=== PATIENT | male | born 2000 | race Caucasian/White ===

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

== ENCOUNTER 2022-08-01 16:25 | Outpatient (CLI) | payer BC, SELFPAY ==
--- NOTE | 2022-08-01 11:00 | NEURO_ITS ---
Impression: # Complains of pain in right hand. # No Carpal Tunnel Syndrome. # No ulnar neuropathy. # Normal needle/EMG exam. # Clinical correlation recommended. Nerve Conduction Studies Anti Sensory Summary Table Stim Site NR Peak (ms) P-T Amp (?V) Site1 Site2 Delta-P (ms) Dist (cm) Latrell (m/s) Left Median Anti Sensory (2-3nd Digit) Wrist 3.1 46.6 Wrist 2-3nd Digit 3.1 14.0 45 Wrist 3.2 40.6 Wrist 2-3nd Digit 3.1 14.0 45 Right Median Anti Sensory (2-3nd Digit) Wrist 3.1 40.5 Wrist 2-3nd Digit 3.1 14.0 45 Wrist 3.1 21.6 Wrist 2-3nd Digit 3.1 14.0 45 Left Radial Anti Sensory (Base 1st Digit) Wrist 2.3 13.8 Wrist Base 1st Digit 2.3 0.0 Right Radial Anti Sensory (Base 1st Digit) Wrist 2.7 16.4 Wrist Base 1st Digit 2.7 0.0 Left Ulnar Anti Sensory (5th Digit) Wrist 2.8 16.6 Wrist 5th Digit 2.8 14.0 50 Right Ulnar Anti Sensory (5th Digit) Wrist 2.8 14.5 Wrist 5th Digit 2.8 14.0 50 Motor Summary Table Stim Site NR Onset (ms) O-P Amp (mV) Site1 Site2 Delta-0 (ms) Dist (cm) Latrell (m/s) Left Median Motor (Abd Poll Brev) Wrist 2.9 4.6 Elbow Wrist 5.5 30.0 55 Elbow 8.4 3.9 Right Median Motor (Abd Poll Brev) Wrist 3.1 3.9 Elbow Wrist 5.4 31.0 57 Elbow 8.5 6.6 Left Ulnar Motor (Abd Dig Minimi) Wrist 2.6 6.4 A Elbow Wrist 4.9 29.0 59 A Elbow 7.5 5.6 Right Ulnar Motor (Abd Dig Minimi) Wrist 2.9 5.8 A Elbow Wrist 5.4 31.0 57 A Elbow 8.3 4.5 F Wave Studies NR F-Lat (ms) L-R F-Lat (ms) Left Median (Mrkrs) (Abd Poll Brev) 29.69 0.71 Right Median (Mrkrs) (Abd Poll Brev) 28.98 0.71 Left Ulnar (Mrkrs) (Abd Dig Min) 29.30 0.45 Right Ulnar (Mrkrs) (Abd Dig Min) 29.75 0.45 EMG Side Muscle Nerve Root Ins Act Fibs Amp Dur Recrt Comment Right 1stDorInt Ulnar C8-T1 Nml Nml Nml Nml Nml Right Ext Indicis Radial (Post Int) C7-8 Nml Nml Nml Nml Nml Right Ext Digitorum Radial (Post Int) C7-8 Nml Nml Nml Nml Nml Right BrachioRad Radial C5-6 Nml Nml Nml Nml Nml Right PronatorTeres Median C6-7 Nml Nml Nml Nml Nml Right Abd Poll Brev Median C8-T1 Nml Nml Nml Nml Nml Left 1stDorInt Ulnar C8-T1 Nml Nml Nml Nml Nml Left Ext Indicis Radial (Post Int) C7-8 Nml Nml Nml Nml Nml Left Ext Digitorum Radial (Post Int) C7-8 Nml Nml Nml Nml Nml Left BrachioRad Radial C5-6 Nml Nml Nml Nml Nml Left PronatorTeres Median C6-7 Nml Nml Nml Nml Nml Left Abd Poll Brev Median C8-T1 Nml Nml Nml Nml Nml Right Biceps Musculocut C5-6 Nml Nml Nml Nml Nml Right Triceps Radial C6-7-8 Nml Nml Nml Nml Nml Right Deltoid Axillary C5-6 Nml Nml Nml Nml Nml Left Biceps Musculocut C5-6 Nml Nml Nml Nml Nml Left Triceps Radial C6-7-8 Nml Nml Nml Nml Nml Left Deltoid Axillary C5-6 Nml Nml Nml Nml Nml MTDD
--- NOTE | 2022-08-02 07:11 | PCNEURO ---
Paper documentation exists on this patient due to [employer] downtime on 08/01/22 from to 00:30-19:30 .
== END 2022-08-01 16:26 | disposition home or self-care (01) ==
LOC: ANHNEURO 16:25
PROVIDERS: PCP Physician Assistant; Visit Provider Physician Assistant
DX: M79.641 Pain in right hand (principal)
CPT/HCPCS: 95886; 95911

== ENCOUNTER 2024-02-28 11:04 | Emergency (ER) | payer BC, SELFPAY ==
[2024-02-28 11:34] VITALS: BP 119/84; PULSE 91; RESP 18; TEMP 36.9; O2SAT 97
--- NOTE | 2024-02-28 12:55 | PC.NURSE ---
not in waiting room. Called 3 different times for radiology and no answer in waiting room. Did not let let staff know at desk he was leaving
== END 2024-02-28 13:40 | disposition left against medical advice (07) ==
PROVIDERS: PCP Physician Assistant
DX: S99.922A Unspecified injury of left foot, initial encounter (principal)
CPT/HCPCS: 99199

== ENCOUNTER 2024-05-18 15:02 | Emergency (ER) | payer BC, SELFPAY ==
--- NOTE | 2024-05-18 15:06 | PC.NURSE ---
Pt. states I have to use the bathroom and ran to bathroom. Will get vital signs when pt. returns.
[2024-05-18 15:08] VITALS: BP 150/97; PULSE 63; RESP 19; TEMP 36.4; O2SAT 100
--- NOTE | 2024-05-18 16:37 | PC.NURSE ---
Pt. called to be brought back to a room. Pt. Dad states they are leaving now to go somewhere else. Pt. and visitor understood that were being brought back to a room and declined. Pt. ambulatory with a steady gait at time of d/c.
--- OUTSIDE RECORDS SUMMARY | 2024-05-18 16:37 | XMS_ITS | Data Portability ---
[facility] [address] [place] [address] Care Team Providers Care Control Analyst Name Role Phone OMA RIVERS Primary Care Provider Unavailab le Assessment No assessment recorded. Plan of Treatment Reminders Order Date Submit Date Provider Last Modified By Organization Details Last Modified Time Details Appointments None recorded. Lab TSH + free T4, serum 2023 [email or web address] [facility], [address], [place], [address], 5 10:38:10 CMP, serum or plasma 2023 [email or web address] [facility], [address], [place], [address], 5 10:38:10 [facility] w/ [email or web address], [address], [place], [address], 5 10:38:10 lipid panel, serum 2023 [email or web address] [facility], [address], [place], [address], 5 10:38:10 vitamin B12 + folate, serum or blood 2023 [email or web address] [facility], [address], [place], [address], 5 10:37:39 HbA1c (hemoglobi n A1c), blood 2023 024 [email or web address] [facility], [address], [place], [address], 5 10:38:10 TSH + free T4, serum 2023 024 [email or web address] [facility], [address], [place], [address], 4 17:45:46 lipid panel, serum 2023 024 [email or web address] [facility], [address], [place], [address], 4 17:45:58 CMP, serum or plasma 2023 024 [email or web address] [facility], [address], [place], [address], 4 17:46:07 CBC w/ auto diff 2023 024 [email or web address] [facility], [address], [place], [address], 4 17:46:02 HbA1c (hemoglobi n A1c), blood 2023 024 [email or web address] [facility], [address], [place], [address], 4 17:45:52 Referral plastic surgeon referral 2023 024 [email or web address] Maris Dwyer MD, [address], [place], [address], 5 11:08:22 Procedures None recorded. Surgeries None recorded. Imaging None recorded. Medication Orders trazodone 100 mg tablet 2023 024 [id number], [address], [place], [place], [id number], 4 15:34:15 Medrol (Chele) 4 mg tablets in a dose pack 2023 024 [id number], [address], [place], [place], [id number], 4 15:04:38 Patient TargetsNo targets recorded. Patient InstructionsNo instructions recorded. 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 Referring Physician: Oma Rivers, Internal Medicine, Encounter Date: 07/03/2023 Problems Name Problem SNOMED Code Status Onset Date Resolution Date Notes Provider Name and Address Organization Details Recorded Time Chronic insomnia 547869426 Active 024 KIM York Attn: Justin villanueva,[address] [place], [address], [facility] 4 09:31:31 Benign paroxysmal positional vertigo 088452334 Active 024 KIM York Attn: Justin villanueva,[address] [place], [address], [facility] 4 09:31:32 Fatigue 51807729 Active 024 KIM York Attn: Justin villanueva,[address] [place], [address], [facility] 4 09:31:40 Problem Notes None recorded. Medical Equipment None Reported. Allergies No known drug allergies Medications Name Sig Start Date Stop Date Status Note LastModified by Organization Details LastModified Time azithromy beryl 250 mg tablet TAKE 2 TABLETS (500 MG) BY ORAL ROUTE ONCE DAILY FOR 1 DAY THEN 1 TABLET (250 MG) BY ORAL ROUTE ONCE DAILY FOR 4 DAYS active Not Available Not Available No t Available prednison e 20 mg tablet active Not Available Not Available Not Available trazodone 100 mg tablet Take 1 tablet every day by oral route at bedtime. active Not Available Not Available No t Available meclizine 25 mg tablet Take by oral route for 3 days. active vertigo Not Available Not Available No t Available methylpre dnisolone 4 mg tablets in a dose pack use as directed 12/26 completed Not Available Not Available Not Available amoxicill in 875 mg-potass ium clavulana te 125 mg tablet TAKE 1 TABLET BY MOUTH TWICE DAILY FOR 10 DAYS active Not Available Not Available No t Available Vitals Date Recorded Body height Respiratory rate Body mass index (BMI) Body weight Heart rate Oxygen saturation Oxygen saturation in Arterial blood by Pulse oximetry Systolic blood pressure Diastolic blood pressure Provider Name and Address Organization Details Last Updated DateTime 4 180.34 cm 18 /min 19.8 kg/m2 58058.1 2 g 90 /min 99 % 99 % 120 mm[Hg] 82 mm[Hg] Aj Anderson MA [facility] 4 09:58:14 Date Recorded Body height Body mass index (BMI) Body weight Respiratory rate Oxygen saturation Oxygen saturation in Arterial blood by Pulse oximetry Heart rate Systolic blood pressure Diastolic blood pressure Provider Name and Address Organization Details Last Updated DateTime 4 180.34 cm 19.7 kg/m2 64037.5 2 g 18 /min 98 % 98 % 75 /min 118 mm[Hg] 82 mm[Hg] Aj Anderson MA [facility] 4 15:07:24 Social History Question Answer Notes LastModified by Organizat ion Details LastModified Time Tobacco Smoking Status Never Smoker Aj Anderson MA null, [facility] 07/03/2023 09:55:56 Do You Have An Advance Directive? No Information not available 07/03/2023 What Is Your Level Of Alcohol Consumption? Occasional Twice A Month Information not available 07/03/2023 Are You Blind Or Do You Have Difficulty Seeing? No Information not available 07/03/2023 What Is Your Level Of Caffeine Consumption? Occasional Soda A Day Information not available 07/03/2023 In The 14 Days Before Symptom Onset, Have You Had Close Contact With A [facility] While That Case Was Ill? No Information not available 07/02/2023 In The 14 Days Before Symptom Onset, Have You Had Close Contact With A Person Who Is Under Investigation For COVID-19 While That Person Was Ill? No Information not available 07/02/2023 Have You Been To An Area Known To Be High Risk For COVID-19? No Information not available 07/02/2023 Are You Deaf Or Do You Have Serious Difficulty Hearing? No Information not available 07/03/2023 What Type Of Diet Are You Following? REGULAR Information not available 07/03/2023 Are There Any Guns Present In Your Home? No Information not available 07/03/2023 What Was The Date Of Your Most Recent Tobacco Screening? 12/27/2023 Information not available 12/27/2023 What Is Your Relationship Status? Domestic Partner Information not available 07/03/2023 Do You Use Your Seat Belt Or Car Seat Routinely? Yes Information not available 07/02/2023 Do You Have Smoke And Carbon Monoxide Detectors In Your Home? Yes Information not available 07/02/2023 Do You Use Any Illicit Or Recreational Drugs? No Information not available 07/03/2023 Do You Use Sunscreen Routinely? No Information not available 07/03/2023 Has Tobacco Cessation Counseling Been Provided? Yes Information not available 07/02/2023 On What Date Was Tobacco Cessation Counseling Provided? 07/03/2023 Information not available 07/03/2023 Do You Or Have You Ever Used Any Other Forms Of Tobacco Or Nicotine? No Information not available 07/03/2023 Sex: Male Functional Status Question Answer Note LastModified by Organizat ion Details LastModified Time Are you able to care for yourself? Yes Information not available 07/02/2023 What is your exercise level? Moderate 2x a week Information not available 07/03/2023 Mental Status None recorded. Family History Relationship Description Onset Age of this Age Resolved Age Notes LastModified by Organization Details LastModified Time Father Depressive disorder [email or web address] Not available 2023 12:24:54 Sister Depressive disorder [email or web address] Not available 2023 12:24:54 Mother Disorder of thyroid gland [email or web address] Not available 2023 12:25:35 Medical History Condition Response Coronary Artery Disease N Other N Atrial Fibrillation N High Blood Pressure N Kidney or Bladder Problems N Thyroid Problems N GI Problems N Depression N COPD N Blood Clots N Skin Problems N Anemia N Heart Attack ([place]) N Anxiety Disorder N Diabetes N Muscle, Joint, or Bone Problems N Seizures/Epilepsy N Acid Reflux (GERD) N Cancer N Stroke N Asthma Y Allergies N High Cholesterol N Hepatitis N Liver Disease N Headaches N Heart Failure N Osteoporosis N Immunizations Vaccine Type Date Status Note Provider Nam e and Address Organization Details Recorded Time Hib-Hep B 2 completed Aj [place], [place] [facility] 12/26/2023 14:58:42 Hib-Hep B 2 completed Aj [place] [facility] 12/26/2023 14:58:42 Hib-Hep B 2 completed Aj [place] [facility] 12/26/2023 14:58:42 IPV 2 completed Aj [place] [facility] 12/26/2023 14:58:42 IPV 2 completed Aj [place] [facility] 12/26/2023 14:58:42 IPV 2 completed Aj [place] [facility] 12/26/2023 14:58:43 meningococcal ACWY, unspecified formulation 3 completed Aj [place] [facility] 12/26/2023 14:58:43 MMR 7 completed Aj [place] [facility] 12/26/2023 14:58:43 MMR 2 completed Aj [place] [facility] 12/26/2023 14:58:43 meningococcal MPSV4 9 completed Aj [place] [facility] 12/26/2023 14:58:43 COVID-19, mRNA, LNP-S, PF, 30 mcg/0.3 mL dose 1 completed Aj [place] [facility] 12/26/2023 14:58:43 COVID-19, mRNA, LNP-S, PF, 30 mcg/0.3 mL dose 1 completed Aj [place] [facility] 12/26/2023 14:58:43 pneumococcal conjugate PCV 7 2 completed Aj [place] [facility] 12/26/2023 14:58:43 pneumococcal conjugate PCV 7 2 completed Aj [place] [facility] 12/26/2023 14:58:43 pneumococcal conjugate PCV 7 2 completed Aj [place] [facility] 12/26/2023 14:58:43 pneumococcal conjugate PCV 7 2 completed Aj [place] [facility] 12/26/2023 14:58:43 Tdap 3 completed [place] [facility] 12/26/2023 14:58:43 varicella 7 completed [place] [facility] 12/26/2023 14:58:43 varicella 3 completed [place] [facility] 12/26/2023 14:58:43 polio, unspecified formulation 7 completed [place] [facility] 12/26/2023 14:58:43 DTaP 2 completed [place] [facility] 12/26/2023 14:58:43 DTaP 2 completed [place] [facility] 12/26/2023 14:58:43 DTaP 2 completed [place] [facility] 12/26/2023 14:58:43 DTaP, unspecified formulation 7 completed DOROT[place] [facility] 12/26/2023 14:58:43 DTaP, unspecified formulation 3 [place] [facility] 12/26/2023 14:58:43 Hep A, unspecified formulation 3 [place] [facility] 12/26/2023 14:58:43 Hep A, unspecified formulation 7 completed D[place]OT[place] [facility] 12/26/2023 14:58:43 Past Encounters Encounter ID Performer Location Encounter Start Date Encounter Closed Date Diagnosis/Indication Diagnosis SNOMED-CT Code Diagnosis ICD10 Code Diagnosis Note [id number] KIM York [facility] [address] [place] [address] 07/03/2023 09:48:20 07/03/2023 11:34:56 Paresthesia of bilateral hands 984785852 R20.2 pt continues to report bilateral hand pain. He did complete NCS at [facility] at the last office location. will await those records but he should consult with hand specialist on his symptoms to see if recheck for carpal tunnel is needed. Strain of muscle of right forearm 0500706813 2091714 S56.911A Start medrol dose pack. patient uses his hands and forearms all day at work, using tools and twisting and turning tools. He should ice the area as well. Long-term drug therapy 798459041 Z79.899 cmp and cbc due. Cholesterol screening 27 1887821 Z13.220 fasting lipids due Diabetes m ellitus screening 192688439 Z13.1 a1c screening due. Thyroid di sorder screening 702153107 Z13.29 thyroid panel screening ordered. [id number] KIM York [facility] [address] [employer] [place] [address] 12/27/2023 14:37:07 12/30/2023 16:39:55 Long-term drug therapy 026076743 Z79.899 cmp and cbc due. Cholesterol screening 27 6040215 Z13.220 fasting lipids due Diabetes m ellitus screening 774070408 Z13.1 a1c screening due. Thyroid di jonnie screening 283499071 Z13.29 thyroid panel screening ordered. Fatigue 68676393 R53.83 Screening B12 and folate ordered for persistent fatigue which may be related to his chronic insomnia. Benign par oxysmal positional vertigo 895849808 H81.13 Patient is already having some improvemen t with meclizine. He can continue this plan and notify us if there is not complete resolution of symptoms. Chronic insomnia 6797868 04 F51.04 Patient's insomnia is his major complaint today. We will trial him on trazodone 100 mg p.o. q.h.s. Health Concerns Section Related Observation LastModified by Organization Lyndon newman LastModified Time None Recorded Concern Status LastModified by Organization Details LastModified Time None Recorded Advance Directives Directive N: Payers Encounter Date Sequence Insurance Name Policy Number Policy Daily Covered Member ID Daily Member ID Guarantor Name 07/03/2023 1 [place] [id number] Freddy Edward [id number] Freddy Edward 12/27/2023 1 [place] [id number] Freddy Cheyanne [id number] Freddy Cheyanne Notes Date Note Type Note Provider Name and Address Organization Details Recorded Time 4 text/html Musculoskeletal PainReported bypatient.Notes:Right hand pain at times with grabbing, he gets this pinching nerve pain and cannot close hand or log buyer. take 4-5 min. of rest and pain resolves. Then last night he bent down and reached something off floor and right forearm medially had burning sensation pain, that shot to elbow region. Pain today is less so and just feels tender. 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 KIM York Attn: Accounting,[address] [place], [address], [facility] 07/21/2023 15:08:14 4 text/html FatigueReported bypatient.Quality:continuou s Severity:normal activity; Poor sleep Timing:worse Context:no problems/stress at work or home;symptoms do not improve on weekends/vacations Modifying Factors:no new stressors in life Associated Symptoms:no drug/alcohol withdrawal; no depression; no anxiety; no sleep disturbances; no snoring; periods of not breathing (apnea) have not been observed; no recent change in weightInsomniaReported bypatient.Quality:symptoms worse in the evening Severity:worsening Duration:frequent Context:takes hours to fall asleep Associated Symptoms:no anxiety; no snoring; no depression; no known sleep apnea; no pain; no dyspnea; no urinary frequency; legs do not feel restless Patient had episode of significant dizziness and fatigue and went to the urgent Care was diagnosed with vertigo. They gave him meclizine which is helping some but he was also treated for a sinus infection with Augmentin and prednisone KIM York Attn: Accounting,[address] [place] [address], [address], [place] - [facility] 01/17/2024 09:32:44
--- OUTSIDE RECORDS SUMMARY | 2024-05-18 16:37 | XMS_ITS | Continuity of Care Document ---
Author Organization [facility] Address [address] [place] [address] Phone Care Team Providers Care Mine Foreman Name Role Phone Mike PT,MPT,ATC, Josh Unavailable Unavai labzuleika Procedures Procedure Date Progress Note Therapeutic Exercise Neuromuscular Re-Ed Manual Therapy Therapeutic Exercise Neuromuscular Re-Ed Manual Therapy Hot or Cold Pack Electrical Stimulation Therapeutic Exercise Neuromuscular Re-Ed Manual Therapy Hot or Cold Pack Electrical Stimulation PT Evaluation Moderate Complexity Neuromuscular Re-Ed Manual Therapy Hot or Cold Pack Electrical Stimulation Advance Directives Directive Yes / No Effective Date File Name No Information Encounters Encounter Description Practice Location Reason(s) For Visit Diagnoses Date Provider Providers Copied on Encounter [facility], [place], [place], [id number], [place] tel:[phone] [place] No Information 7 Mike Gay , [place], [place]. [facility], [place], [place], [id number], tel:[phone] Daron No Information 7 Mike Gay [place], . [facility], [place], [place], [address], tel:[phone] Daron No Information Mike Gay [place], . [facility], [place], [place], [address], tel:[phone] [place] Postconcussional syndromeLabyrint cherry dysfunction, unspecified earOccipital neuralgia 7 Mike Gay [place], [place], . Family History Family Member Type Diagnosis Age At Onset No Information Payers Payer name Insurance type Covered libertarian ID Authoralec santo(s) [facility] [id number] Social History Type Description Quantity Date Captured Comments Sex Male Smoking Status No Information Chief Complaint And Reason For Visit No Information Reason For Referral Reason For Referral No Information History Of Present Illness Encounter Date Complaint History Of Prese nt Illness No Information Functional Status Date Functional Assessmen t No Information Instructions Date Instruction Additional Infor mation No Information Assessments Type Assessment Date No Information Patient Care Teams Name Effective Dates (start - stop) Status Members No Information
--- OUTSIDE RECORDS SUMMARY | 2024-05-18 16:38 | XMS_ITS | Data Portability ---
Author Organization [place] [facility] [employer] Main Office Address [address] [place] [address] Assessment No assessment recorded. Plan of Treatment Reminders Order Date Submit Date Provider Last Modified By Organization Details Last Modified Time Details Appointments None recorded. Lab None recorded. Referral None recorded. Procedures nerve conduction study/EMG, upper extremity (PROC) [address] (Imaging), [address] [place] [address] [address], [place], [address], 3 21:47:42 Surgeries None recorded. Imaging XR, hand [email or web address] [place] [address] Imaging, [address] [place] [address] [address], [place], [address], 4 10:59:48 Medication Orders Medrol (Chele) 4 mg tablets in a dose pack [address] [id number], [address], [place], [id number], 3 17:01:26 Patient TargetsNo targets recorded. Patient InstructionsNo instructions recorded. Reason for Referral None Reported. Results Created Date Observation Date Name Description Value Unit Range Abnormal Flag Note LastModifiedBy Organization Detail LastModifiedTime 12/31/19 21 12/30/2020 XR, knee No observ ation record ed. [id number] [facility] [address] [place] [address] [address], [place], [address], 04/18/2022 18:56:54 08/11/19 23 08/01/2022 nerve condu ction study /EMG, upper extre mity (PROC ) No observ ation record ed. [email or web address] [facility] (Imaging) [address], [place], [address], 08/13/2022 13:01:35 Result Notes None recorded. Problems Name Problem SNOMED Code Status Onset Date Resolution Date Notes Provider Name and Address Organization Details Recorded Time Depressive disorder 18411751 Active 2019 Not Available [employer] 3 18:55:39 Strain of muscle and/or tendon of thigh 257081537 Active 2022 Not Available [employer] 3 18:55:39 Strain of tendon of wrist 743295613 Active 2021 Not Available [employer] 3 18:55:39 Fatigue 03124538 Active 2022 Not Available [facility] 3 18:55:39 Pain in limb 73290281 Active Not Available [facility] 3 18:55:39 Pain in right hand 5565856146836 09 Active 2022 KIM York [address], [place], [address] , [employer] 3 09:44:49 Laceration of finger of right hand 8916563616508 9101 Active 2022 KIM York [address], [address], [place], [address] , [employer] [facility] 3 17:01:18 Problem Notes None recorded. Procedures Surgical History Date Name Laterality Status Provider Name and Address Organization Details Recorded Time 02/18/19 04 Tonsillectomy and/or Adenoidectomy completed Not Available [employer] 04/18/2022 18:55:02 02/18/19 02 operation on the inner ear completed Not Available [employer] 04/18/2022 18:55:02 Imaging Results Imaging Date Name Status LastModified by Organiz ation Details LastModified Time 12/30/2020 XR, knee completed [id number] [facility] [address], [place], [address], 04/18/2022 18:56:54 08/01/2022 nerve conduction study/EMG, upper extremity (PROC) completed [email or web address] [facility] ([facility]) [address], [place], [address], 08/13/2022 13:01:35 Procedure Notes None recorded. Medical Equipment None Reported. Allergies No known drug allergies Medications Name Sig Start Date Stop Date Status Note LastModified by Organization Details LastModified Time amoxicillin 500 mg capsule 12/29 completed Not Available Not Available Not Available clindamycin HCl 300 mg capsule 12/29 completed Not Available Not Available Not Available azithromyci n 250 mg tablet take 4 tabs po x 1 dose. active Not Available Not Available No t Available acetaminoph en 120 mg-codeine 12 mg/5 mL oral solution 12/29 completed Not Available Not Available Not Available citalopram 10 mg tablet active Not Available Not Available Not Available prednisone 20 mg tablet 12/29 completed Not Available Not Available Not Available sulfamethox azole 800 mg-trimetho prim 160 mg tablet Take 1 tablet every 12 hours by oral route with meals. 04/12 completed Not Available Not Available Not Available amoxicillin 500 mg tablet 12/29 completed Not Available Not Available Not Available meloxicam 7.5 mg tablet 12/29 completed Not Available Not Available Not Available citalopram 20 mg tablet Take 1 tablet every day by oral route. active Not Available Not Available No t Available diclofenac sodium 75 mg tablet,edilberto yed release 12/29 completed Not Available Not Available Not Available methylpredn isolone 4 mg tablets in a dose pack FOLLOW PACKAGE DIRECTION S 09/14 completed Not Available Not Available Not Available amoxicillin 875 mg-potassiu m clavulanate 125 mg tablet TAKE 1 TABLET BY MOUTH TWICE DAILY FOR 10 DAYS 12/04 completed Not Available Not Available Not Available Voltaren 1 % topical gel APPLY 2 GRAMS TO THE AFFECTED AREA(S) BY TOPICAL ROUTE 4 TIMES PER DAY 02/05 completed Not Available Not Available Not Available Vitamin B12 OTC, takes daily 2019 active Not Available Not Available Not Avai lable Vitals Date Recorded Body mass index (BMI) Body height Oxygen saturation Oxygen saturation in Arterial blood by Pulse oximetry Heart rate Body temperature Body weight Systolic blood pressure Diastolic blood pressure Provider Name and Address Organization Details Last Updated DateTime 1 19.8 kg/m2 180.34 cm 98 % 98 % 68 /min 98.6 [degF] 95363.1 2 g 110 mm[Hg] 60 mm[Hg] Not Available [facility] 3 18:55:15 Date Recorded Body mass index (BMI) Body height Oxygen saturation Oxygen saturation in Arterial blood by Pulse oximetry Heart rate Body temperature Body weight Systolic blood pressure Diastolic blood pressure Provider Name and Address Organization Details Last Updated DateTime 2 20.1 kg/m2 180.34 cm 99 % 99 % 72 /min 97.6 [degF] 28898.3 g 118 mm[Hg] 70 mm[Hg] Not Available [facility] 3 18:55:15 Date Recorded Body mass index (BMI) Body height Oxygen saturation Oxygen saturation in Arterial blood by Pulse oximetry Heart rate Respiratory rate Body temperature Body weight Systolic blood pressure Diastolic blood pressure Provider Name and Address Organization Details Last Updated DateTime 3 21.8 kg/m2 180.34 cm 99 % 99 % 73 /min 16 /min 97.5 [degF] 21741.4 1 g 120 mm[Hg] 80 mm[Hg] Not Available [facility] 3 18:55:16 Date Recorded Body mass index (BMI) Body height Oxygen saturation Oxygen saturation in Arterial blood by Pulse oximetry Heart rate Respiratory rate Body temperature Body weight Systolic blood pressure Diastolic blood pressure Provider Name and Address Organization Details Last Updated DateTime 3 21.5 kg/m2 180.34 cm 98 % 98 % 82 /min 16 /min 97.8 [degF] 82749.2 2 g 120 mm[Hg] 80 mm[Hg] Not Available [facility] 3 18:55:16 Date Recorded Body height Body temperature Body mass index (BMI) Body weight Respiratory rate Oxygen saturation Oxygen saturation in Arterial blood by Pulse oximetry Heart rate Systolic blood pressure Diastolic blood pressure Provider Name and Address Organization Details Last Updated DateTime 3 180.34 cm 97.8 [degF] 20.2 kg/m2 02101.1 g 16 /min 99 % 99 % 76 /min 120 mm[Hg] 80 mm[Hg] PriscillaTIN Connor [place] - [facility] 09:37:15 Social History Question Answer Notes LastModified by Organizat ion Details LastModified Time Tobacco Smoking Status Never Smoker Not Available [facility] 04/18/2022 18:54:45 Do You Have An Advance Directive? No [id number] Information not available 04/18/2022 What Is Your Level Of Alcohol Consumption? None [id number].528141 4004 Information not available 04/18/2022 What Is Your Level Of Caffeine Consumption? Moderate [id number].[id number] 4972 Information not available 04/18/2022 How Much Tobacco Do You Chew? None MIGRATION.786225 6967 Information not available 04/18/2022 In The 14 Days Before Symptom Onset, Have You Had Close Contact With A Laboratory-confir med COVID-19 While That Case Was Ill? No [id number].855255 9244 Information not available 04/18/2022 In The 14 Days Before Symptom Onset, Have You Had Close Contact With A Person Who Is Under Investigation For COVID-19 While That Person Was Ill? No [id number].439289 9726 Information not available 04/18/2022 Are You Currently Employed? No [email or web address] Information not available 06/25/2022 What Type Of Diet Are You Following? REGULAR MIGRATION.035235 3392 Information not available 04/18/2022 Do You Or Have You Ever Used E-cigarettes Or Vape? 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 No MIGRATION.498837 5187 Information not available 04/18/2022 Do You Use Insect Repellent Routinely? No MIGRATION.466591 6305 Information not available 04/18/2022 Do You Have A Medical Power Of Receiving Clerk? No MIGRATION.402341 1413 Information not available 04/18/2022 What Is Your Relationship Status? Single MIGRATION.309680 5691 Information not available 04/18/2022 Do You Use Your Seat Belt Or Car Seat Routinely? Yes MIGRATION.685578 8341 Information not available 04/18/2022 Do You Have Smoke And Carbon Monoxide Detectors In Your Home? Yes MIGRATION.410355 8593 Information not available 04/18/2022 Do You Or Have You Ever Used Smokeless Tobacco? Never Used Smokeless Tobacco MIGRATION.655103 4282 Information not available 04/18/2022 How Much Tobacco Do You Smoke? No MIGRATION.730051 6971 Information not available 04/18/2022 Do You Use Any Illicit Or Recreational Drugs? No MIGRATION.764476 8086 Information not available 04/18/2022 Do You Use Sunscreen Routinely? Yes MIGRATION.523519 6650 Information not available 04/18/2022 Have You Recently Traveled Abroad? No MIGRATION.347601 8474 Information not available 04/18/2022 Do You Have Any Dietary Restrictions? No MIGRATION.148533 3644 Information not available 04/18/2022 Do You Or Have You Ever Used Any Other Forms Of Tobacco Or Nicotine? No MIGRATION.796662 5832 Information not available 04/18/2022 Sex: Unknown Functional Status Question Answer Note LastModified by Organizat ion Details LastModified Time What is your exercise level? None [id number] Information not available 04/18/2022 Mental Status None recorded. Family History Relationship Description Onset Age of this Age Resolved Age Notes LastModified by Organization Details LastModified Time Father Anxiety [id number] Not available 04/18/2022 18:55:03 Mother Graves' disease [id number] Not available 04/18/2022 18:55:03 Medical History Condition Response ANXIETY DISORDER Y Past Encounters Encounter ID Performer Location Encounter Start Date Encounter Closed Date Diagnosis/Indication Diagnosis SNOMED-CT Code Diagnosis ICD10 Code Diagnosis Note [id number] [facility] [place] [address] [place] [address] 12/30/2020 00:00:00 01/05/2021 09:24:23 [id number] [facility] [place] [address] [place] [address] 02/06/2022 00:00:00 02/14/2022 12:59:38 [id number] [facility] [place] [address] [place] [address] 03/30/2022 00:00:00 04/16/2022 00:57:19 [id number] [facility] [place] [address] [place] [address] 04/04/2022 00:00:00 04/15/2022 22:34:45 [id number] KIM York [facility] [place] [address] [place] [address] 06/26/2022 09:29:54 06/26/2022 09:56:43 Pain in right hand 8470029378 34136 M79.641 pt to wear cock up wrist splint during sleep. send for NCS of UEs and start MDP. Health Concerns Section Related Observation LastModified by Organization Detai ls LastModified Time None Recorded Concern Status LastModified by Organization Details LastModified Time None Recorded Advance Directives Directive N: Payers Encounter Date Sequence Insurance Name Policy Number Policy Daily Covered Member ID Daily Member ID Guarantor Name 06/26/2022 1 [place] [id number] Keagan Edward [id number] Keagan Edward Notes Date Note Type Note Provider Name and Address Organization Details Recorded Time 12/30/2020 text/html Knee SwellingRep orted bypatient.[facility] Quality:tense Severity:moderate; 08/27 Duration:3 years Timing:gradual; recurrent Context:sports injury Alleviating Factors:sitting; lying down; heat; rest Aggravating Factors:standing; walking; twisting; bending/squatting; pushing/pulling; weightbearing; exercise; getting out of bed; upstairs; downstairs Associated Symptoms:no ecchymosis; no radiation down leg; no drainage; no fever; no chills; no weight loss; no change in bowel/bladder habits;weakness;numbn ess;tingling;redness; warmth;catching/locki ng;popping/clicking;b uckling;grinding;inst ability Previous Surgery:none Previous PT:none Previous Injections:none Work Related:no Work Level:no Sport Level:unrestrictedNot es:hx of injury and surgery on this knee from sports as adolescent. Not Available [place] [facility] [employer] 01/05/2021 09:24:23 02/06/2022 text/html Generic HPI TemplateReported bypatient.Notes:pt is here for c/o right hand painreports he woke up last week with swollen forearm and shooting pain from arm to handshooting pain upon opening and closing to make a fist. 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 Not Available [employer] [facility] [employer] 02/14/2022 12:59:38 04/04/2022 text/html Generic HPI TemplateReported bypatient.Location:L anterior thigh near quads Quality:burning Severity:about the same- pain rated 8/10 Duration:comes and goes Onset/Timin days Context:unknown Aggravating factors:standing up from a sitting position Alleviating factors:sitting back down. Not Available [employer] [facility] [employer] 04/15/2022 22:34:45 06/26/2022 text/html Generic HPI TemplateReported bypatient.Location:R hand Quality:sharp and radiates up forearm. Severity:pain rated 9/10 Duration:comes and goes Onset/Timing:years ago but recently getting worse as of yesterday. Context:no known injury Aggravating factors:fully extending or closing hand when its happening makes it worse Alleviating factors:goes away relieved w/time. KIM York [address] [place] [address], [facility] [address], [place], [address], [facility] [employer] 07/18/2022 21:12:39
--- OUTSIDE RECORDS SUMMARY | 2024-05-18 17:42 | XMS_ITS | Clinical Summary ---
Author Organization [facility] Address [facility] [place] [address] Care Team Providers Care Painter Aircraft Name Role Phone Kerline Saldana KIM Primary Care Provider [phone] Allergies No known active allergies Medications No known medications Encounters Date Type Department Care Team Description 05/18/2024 5:34 PM CDT - Present Emergency [facility] Emergency Room [address] [place] [address] Vomiting 05/18/2024 Travel from Last 3 Months Social History Tobacco Use Types Packs/Day Years Used Date Smoking Tobacco: Never Smokeless Tobacco: Never Tobacco Cessation:Counseling Given: No Sex and Gender Information Value Date Recorded Sex Assigned at Male 05/18/2024 5:12 PM CDT Legal Sex Male 5:05 PM CDT Gender Identity Not on file Sexual Orientation Not on file Plan of Treatment Health Maintenance Due Date Last Done Comments Annual Physical 01/25/2004 HPV Vaccines (1 - Male 3-dose series) 01/25/2016 Meningococcal B Vaccine (1 of 2 - Standard) 2017 Hepatitis C 2019 DTaP, Tdap and Td Vaccines (1 - Tdap) 01/25/2020 09/15/2012, 05/06/2006, 09/10/2002, Additional history exists Hepatitis B Vaccines (1 of 3 - 19+ 3-dose series) 01/25/2020 01/30/2002, 2001, 2001 COVID-19 Vaccine (1 - 2023- season) 2023 01/01/2021, 12/11/2020 Meningococcal Vaccine Aged Out 09/19/2018, 013 No longer eligible based on patient's age to complete this topic Pneumococcal Vaccine: Pediatrics (0 to 5 Years) and At-Risk Patients (6 to 64 Years) Aged Out 01/30/2002, 2001, 2001, Additional history exists No longer eligible based on patient's age to complete this topic RSV Immunizations Under 20 Months Aged Out No longer eligible based on patient's age to complete this topic Care Teams Painter Aircraft Relationship Specialty Start Date End Date Kerline Saldana PA [address] [place] [address] PCP - General PHYSICIAN FOREST FIRE PREVENTION SPECIALIST 05/18/24
--- OUTSIDE RECORDS SUMMARY | 2024-05-18 17:42 | XMS_ITS | Encounter Summary ---
Author Organization [facility] Address [address] [place] [address] Care Team Providers Care Sugar Cane Planter Machine Operator Name Role Phone Kerline Saldana Primary Care Provider [phone] Encounter Details Date Type Department Care Team (Latest Contact Info) Description 05/18/2024 Travel Social History Tobacco Use Types Packs/Day Years Used Date Smoking Tobacco: Never Smokeless Tobacco: Never Sex and Gender Information Value Date Recorded Sex Assigned at Male 05/18/2024 5:12 PM CDT Legal Sex Male 5:05 PM CDT Gender Identity Not on file Sexual Orientation Not on file documented as of this encounter Plan of Treatment Not on file documented as of this encounter Visit Diagnoses Not on filedocumented in this encounter Care Teams Sugar Cane Planter Machine Operator Relationship Specialty Start Date End Date Kerline Saldana PA [address] [place] [address] PCP - General PHYSICIAN ENGINEER BOOSTER AND EXHAUSTER 05/18/24 documented as of this encounter
--- OUTSIDE RECORDS SUMMARY | 2024-05-18 17:42 | XMS_ITS | Encounter Summary ---
Author Organization [facility] Address [address] [place] [address] Care Team Providers Care Acid Retort Operator Name Role Phone Kerline Saldana Primary Care Provider [phone] Reason for Visit * Reason Comments Vomiting Encounter Details Date Type Department Care Team (Late st Contact Info) Description 05/18/2024 5:34 PM CDT - Present Emergency [facility] Emergency Room [address] [place] [address] Vomiting Social History Tobacco Use Types Packs/Day Years Used Date Smoking Tobacco: Never Smokeless Tobacco: Never Tobacco Cessation:Counseling Given: No Sex and Gender Information Value Date Recorded Sex Assigned at Male 05/18/2024 5:12 PM CDT Legal Sex Male 5:05 PM CDT Gender Identity Not on file Sexual Orientation Not on file documented as of this encounter ED Notes * Elvira Wood RN - 05/18/2024 5:29 PM CDT Mother reports came home from work early with nausea vomiting and diarrhea documented in this encounter Plan of Treatment Not on file documented as of this encounter Visit Diagnoses Not on filedocumented in this encounter Care Teams Acid Retort Operator Relationship Specialty Start Date End Date Kerline Saldana PA [address] [place] [address] PCP - General PHYSICIAN VESSEL OPERATOR 05/18/24 documented as of this encounter
--- OUTSIDE RECORDS SUMMARY | 2024-05-18 17:42 | XMS_ITS | Continuity of Care Document ---
Author Organization [facility] Address [address] [place] [address] Phone Care Team Providers Care Breakfast Hostess Name Role Phone Mike PT,MPT,ATC, Josh Unavailable [...] Diagnoses Date Provider Providers Copied on Encounter [facility], [place], [place], [address], [place] tel:[phone] [place] No Information 7 Mike Gay , [place], [place]. [facility], [place], [place], [address], tel:[phone] [place] No Information 7 Mike Gay [place], . [facility], [place], [place], [address], tel:[phone] [place] No Information Mike Gay [place], . [employer], [place], [place], [address], tel:[phone] [place] Postconcussional syndromeLabyrint cherry dysfunction, unspecified earOccipital neuralgia 7 Mike Gay [place], [place], . Family History Family Member Type Diagnosis Age At Onset No Information Payers Payer name Insurance type Covered republican ID Authoralec santo(s) [facility] [id number] Social History Type Description Quantity Date Captured [...]
== END 2024-05-18 17:06 | disposition left against medical advice (07) ==
PROVIDERS: PCP Physician Assistant
DX: R10.30 Lower abdominal pain, unspecified (principal)
CPT/HCPCS: 99199

== ENCOUNTER 2024-10-04 14:32 | Emergency (ER) | payer BC, SELFPAY ==
--- NOTE | ~2024-10-04 | XR_ITS ---
HISTORY: LT elbow pain/swelling, today, no trauma or injury COMPARISON: None TECHNIQUE: 3 views of the left elbow were performed FINDINGS: No acute fracture is identified. No elevation of the anterior or posterior fat pads are identified to suggest a supracondylar fracture . Overlying soft tissues are unremarkable. Bone mineralization is age-appropriate. IMPRESSION: No acute fracture or dislocation. Reviewed, dictated and finalized at location A.
--- NOTE | 2024-10-04 14:34 | ED.GENADULT ---
HPI - General Adult General Chief complaint: Extremity Problem,Nontraumatic Stated complaint: Left Elbow Swollen Time Seen by Provider: 10/04/24 14:34 Source: patient Mode of arrival: ambulatory Limitations: no limitations History of Present Illness HPI narrative: 24-year-old male patient presents to [facility] with complaints of left elbow swelling. Patient states that he did into the pandya and a hydraulic pump on Saturday at work but does not remember any specific trauma. Patient states he notices swelling to the left elbow this morning when eating breakfast. Patient states he has got full range of motion no pain states it just ?feels weird?. Patient denies taking anything for pain prior to arrival Related Data Home Medications ?Medication ?Instructions ?Recorded ?Confirmed ?Last Taken ?Type No Home Medications 10/04/24 10/04/24 Unknown History Allergies Allergy/AdvReac Type Severity Reaction Status Date / Time No Known Allergies Allergy Verified 10/04/24 14:40 Review of Systems Review of Systems: CONSTITUTIONAL: Denies fever, chills, or sweats. EYES: Denies visual changes, redness, or discharge. ENT: Denies rhinorrhea, congestion, sore throat, or otalgia. CARDIOVASCULAR: Denies chest pain, palpitations, or edema. RESPIRATORY: Denies cough or dyspnea. GASTROINTESTINAL: Denies abdominal pain, nausea, vomiting, or diarrhea. GENITOURINARY: Denies dysuria or hematuria. SKIN: Denies rash or itching. MUSCULOSKELETAL: Denies back pain, joint pain, or myalgia. Positive left elbow swelling NEUROLOGIC: Denies headache, numbness, or weakness. PSYCHIATRIC: Denies anxiety or depression. FOR[facility]LY [facility] Past Medical History Medical History Seasonal asthma Patulous eustachian tube of both ears Depression Surgical History Surgical History H/O adenoidectomy Social History Social History Smoking status: Never smoker Alcohol intake: never Gender identity (if verbalized by the patient): Male Comments At the time of my signature I agree with nursing past medical history, surgical, social, and family history. There is no relevant family history pertinent to the presenting complaint. Exam Narrative: GENERAL: Well-appearing, well-nourished, and in no acute distress. HEAD: Normocephalic, atraumatic. EYES: PERRLA and EOMI. ENT: Nares clear, no rhinorrhea or epistaxis. Mucous membranes moist. NECK: Supple. No lymphadenopathy CHEST: Clear to auscultation. No respiratory distress. HEART: Regular rate and rhythm. No murmur heard. Normal peripheral pulses. ABDOMEN: Soft, nontender, nondistended, normal active bowel sounds. EXTREMITIES: The L elbow is without obvious asymmetry or deformity when compared to the R elbow. No obvious surface trauma, ecchymosis, mild soft tissue swelling. Possible elbow effusion noted on exam. No bony tenderness to palpation of the lateral or medial epicondyle, olecranon, or radial head. No epicondylar or axillary lymphadenopathy. Normal flexion, extension, supination, pronation. Normal muscle strength. Intact motor and sensation of ulnar, median, and radial nerves. SKIN: Warm, dry, no rash. NEURO: No focal deficits. Alert and oriented x3. Course Course Level of Care: Express Care Visit Reevaluation(s) Reevaluation #1: Re-evaluated patient notified him that the x-ray is negative for any acute fracture underlying injury. Discussed with patient we will go ahead and wrap the elbow with an Lew wrap to help with the swelling and encouraged [id number] Tylenol and ibuprofen as needed for pain. Discussed with patient patient elevated and ice it did decrease the swelling and follow up with the primary doctor if symptoms continue patient verbalized understanding denies any other questions or concerns at this time. Date: 10/04/24 Time: 15:34 Vital Signs Vital signs: Vital Signs Temperature 36.8 C 10/04/24 14:49 Pulse Rate 101 H 10/04/24 14:49 Respiratory Rate 18 10/04/24 14:49 Blood Pressure 114/72 10/04/24 14:49 Pulse Oximetry 97 10/04/24 14:49 Oxygen Delivery Room Air 10/04/24 14:49 Temperature 36.8 C 10/04/24 14:49 Pulse Rate 101 H 10/04/24 14:49 Respiratory Rate 18 10/04/24 14:49 Blood Pressure 114/72 10/04/24 14:49 Pulse Oximetry 97 10/04/24 14:49 Oxygen Delivery Room Air 10/04/24 14:49 Vital signs reviewed. Medical Decision Making MDM Narrative Medical decision making narrative: Plan care for patient is to obtain an x-ray of the left elbow to assess any possible effusion or acute fracture. I will reassess patient once this has resulted. Differential Diagnosis Differential Diagnosis: Differential diagnosis: Elbow strain, subluxed radial head, growth plate fracture,supracondylar fracture, subsequent compartment syndrome, posterior dislocation, anterior dislocation, radial head fracture, anterior fat pad. Vital Signs Vital Signs: Vital Signs Temperature 36.8 C 10/04/24 14:49 Pulse Rate 101 H 10/04/24 14:49 Respiratory Rate 18 10/04/24 14:49 Blood Pressure 114/72 10/04/24 14:49 Pulse Oximetry 97 10/04/24 14:49 Oxygen Delivery Room Air 10/04/24 14:49 Temperature 36.8 C 10/04/24 14:49 Pulse Rate 101 H 10/04/24 14:49 Respiratory Rate 18 10/04/24 14:49 Blood Pressure 114/72 10/04/24 14:49 Pulse Oximetry 97 10/04/24 14:49 Oxygen Delivery Room Air 10/04/24 14:49 Imaging Data Radiologist's impression: [facility] [address] [place] [address] XRay Report Signed Patient: Freddy Edward : 2000 MR#: [id number] Age: 24 Acct:[id number] Loc: [facility] ADM Date: 10/04/24Attending Dr: Ordering Physician: Dolores Alonzo [employer]PERATIONS OFFICER [employer]FLOAT Date of Service: 10/04/24 Procedure(s): XR elbow LT min 3V Accession Number(s): [id number] cc: Les, Kerline PUGH; Dolores Alonzo [employer]PERATIONS OFFICER [employer]~ HISTORY: LT elbow pain/swelling, today, no trauma or injury COMPARISON: None TECHNIQUE: 3 views of the left elbow were performed FINDINGS: No acute fracture is identified. No elevation of the anterior or posterior fat pads are identified to suggest a supracondylar fracture. Overlying soft tissues are unremarkable. Bone mineralization is age-appropriate. IMPRESSION: No acute fracture or dislocation. Reviewed, dictated and finalized at location A. Discharge Plan Discharge Clinical Impression: Swelling of joint, elbow, left Patient Disposition: Home Condition: Stable Instructions: Swollen Joint (ED) Additional Instructions: Ice to the area 20-30 minutes 4-6 times a day Elevate above heart Elastic wrap or orthopedic splint as directed for comfort for the next 5-7 days Tylenol for lesser pain Ibuprofen regularly for the next 2-3 days for the inflammation Follow up with your primary care provider if the condition is not improving within 1 week or sooner if the Condition worsens with numbness, tingling, decrease sensation with weakness to seek ER. Patient Language: Bulgarian Prescriptions: No Action No Home Medications Follow-up/Referrals: Les,KEATON Churchill [Primary Care Provider] - Time of Disposition: 15:33
[2024-10-04 14:49] VITALS: BP 114/72; PULSE 101; RESP 18; TEMP 36.8; O2SAT 97
== END 2024-10-04 15:40 | disposition home or self-care (01) ==
LOC: EXPCOLL 14:36
PROVIDERS: Emergency Provider Nurse Practitioner Family; PCP Physician Assistant
DX: M25.422 Effusion, left elbow (principal)
CPT/HCPCS: 73080; 99213; G0463